=== PATIENT | female | born 2000 | race Hispanic/Latino ===

== ENCOUNTER 2024-11-08 12:42 | Emergency (ER) | payer SELFPAY ==
[~2024-11-08] VITALS: Ht 149.9 cm; Wt 61.2 kg
--- NOTE | 2024-11-08 12:58 | EKG ---
[facility] Test Date: 2024-11-08 Test Time: 12:54:48 Pat Name: ELMIRA TAYLOR Department: ED Room: Gender: F [employer] Sales Supervisor: [facility] : 2000 Requested By: LOPEZ HERNANDEZ Order Number: [id number] Reading MD: Mine Coronel Measurements Intervals [place] Rate: 109 P: 62 WI: 128 QRS: 67 QRSD: 88 T: -27 QT: 311 QTc: 419 Interpretive Statements Sinus tachycardia Borderline T abnormalities, diffuse leads No previous ECG available for comparison Electronically Signed On 11-08-2024 14:32:30 CDT by Mine Coronel Please click the below link to view image of tracing.
[2024-11-08] MEDS: 0.9%NACL 1000ML 1,000 ML IV ONE (13:39)
[2024-11-08] MEDS: acetaMINOPHEN 500 MG TABLET PO ONE (13:39)
[2024-11-08] MEDS: FAMOTIDINE 20MG VIAL IV ONE (13:46)
[2024-11-08] MEDS: morPHINE 2 MG SYG IVP ONE (13:46)
[2024-11-08] MEDS: ondanSETRON 4MG INJ IVP ONE (13:46)
[2024-11-08 14:02] LABS: APPEARANCE,URINE CLEAR (CLEAR); BILIRUBIN,URINE NEGATIVE (NEGATIVE); GLUCOSE, URINE (UA) NEGATIVE (NEGATIVE); KETONES,URINE NEGATIVE (NEGATIVE); LEUKOCYTE ESTERASE ,URINE NEGATIVE Leu/uL (NEGATIVE); NITRATE,URINE NEGATIVE (NEGATIVE); OCCULT BLOOD,URINE NEGATIVE (NEGATIVE); PH,URINE 7.5 (5.0-8.0); PROTEIN,URINE NEGATIVE (NEGATIVE); RBC,URINE 0-1 /HPF (0-1); SQUAMOUS EPITHELIAL CELL,UR FEW /HPF (0-2); UROBILINOGEN,URINE 0.2 mg/dL (0.2-1.0); WBC,URINE 0-1 /HPF (0-1)
[2024-11-08 14:07] LABS: COLOR,URINE LIGHT-YELLOW (YELLOW)
[2024-11-08 14:11] LABS: HCG,QUALITATIVE URINE NEGATIVE (NEGATIVE)
[2024-11-08 14:15] LABS: SARS-CoV-2, RNA, NAAT NEGATIVE SARS CoV-2 (NEGATIVE)
[2024-11-08 14:19] LABS: INFLUENZA TYPE A Negative For Type A (NEGATIVE); INFLUENZA TYPE B Negative For Type B (NEGATIVE)
[2024-11-08 14:29] LABS: BASOPHILS # (AUTO) 0.03 K/uL (0.00-0.20); BASOPHILS % (AUTO) 0.3 % (0.0-5.0); HEMATOCRIT 40.2 % (36-48); IMMATURE GRANULOCYTE ABSOLUTE 0.04 K/uL (0-1); LYMPHOCYTES % (AUTO) 9.7 % (21.0-51.0); MEAN CORPUSCULAR HEMOGLOBIN 30.5 pg (27.0-33.0); MEAN CORPUSCULAR HGB CONC 33.3 g/dL (32.0-36.0); MEAN CORPUSCULAR VOLUME 91.6 fL (79-99); MONOCYTES % (AUTO) 9.3 % (3.0-13.0); NEUTROPHILS # (AUTO) 8.3 K/uL (1.8-7.7); NEUTROPHILS % (AUTO) 80.3 % (40.0-77.0); PLATELET COUNT (AUTO) 324 K/uL (130-400); RED BLOOD CELL COUNT(AUTO) 4.39 MIL/uL (4.00-5.50); RED CELL DISTRIBUTION WIDTH 11.8 % (11.0-15.5); WHITE BLOOD COUNT (AUTO) 10.3 K/uL (4.8-10.8)
[2024-11-08 14:40] LABS: INR 1.08 (0.85-1.15); PROTHROMBIN TIME 11.4 SEC (9.6-11.6)
[2024-11-08 14:41] LABS: PARTIAL THROMBOPLASTIN TIME 30.5 SEC (26.3-35.5)
[2024-11-08 14:55] LABS: BAND NEUTROPHILS % (MANUAL) 5 % (0-2); LYMPHOCYTES % (MANUAL) 9 % (22-44); MAN.DIFF COMMENT-IMPRESSION MANUAL DIFFERENTIAL; MONOCYTES % (MANUAL) 5 % (2-9); PLATELET MORPHOLOGY COMMENT ADEQUATE; SEGMENTED NEUTROPHILS % 81 % (40-70); TOTAL CELLS COUNTED 100; WBC MORPHOLOGY CONSISTENT W/DIFF
[2024-11-08 14:57] LABS: ALBUMIN 4.3 g/dL (3.5-5.0); BILIRUBIN,DIRECT 0.1 mg/dL (0.0-0.3); BILIRUBIN,TOTAL 0.4 mg/dL (0.2-1.0); CREATININE 0.7 mg/dL (0.5-1.0); POTASSIUM 3.2 mmol/L (3.5-5.1); TOTAL PROTEIN, SERUM 8.1 g/dL (6.0-8.3)
[2024-11-08] MEDS ORDERED: IOHEXOL-350 75 ML VIAL IV ONE (15:03)
--- NOTE | 2024-11-08 15:28 | HMCIMG ---
Exam Type: CHEST 1VW Clinical Information: Shortness of breath Comparison: None Findings: The lungs are clear of infiltrates. The heart is normal in size. The bony and soft tissue structures of the chest are unremarkable. Impression: Clear lungs.
--- NOTE | 2024-11-08 16:01 | HMCIMG ---
Exam Type: CT ABDOMEN/PELVIS W/CONTRAST Clinical Information: Abdominal pain Comparison: None Contrast: 100 cc's Isovue 370 IV, no complications or adverse reactions CT Dose Index (CTDI): 31.60 mGy Dose Length Product (DLP): 1740.80 total mGy-cm Findings: No evidence of nephro or ureterolithiasis is found. No hydronephrosis or ureteral dilatation is seen. The lung bases are clear. The stomach is unremarkable. It shows no wall thickening. No gross ulceration is seen. It is not overly distended. There are no surrounding inflammatory changes. No wall lesions are identified to suggest cancer. The spleen is unremarkable. It is not enlarged. The pancreas shows normal anatomy. It is not fatty replaced. It shows no lesions. The pancreatic duct is not dilated. The gallbladder is unremarkable. It shows no cholelithiasis. The gallbladder wall is normal in thickness. There is no pericholecystic fluid. The is no acute or chronic inflammation noted. The adrenal glands are unremarkable. There is no enlargement. No lesions are noted. The liver is unremarkable. It shows no focal masses. The appendix is unremarkable. It shows no evidence of inflammation. No appendicolith is seen. The small bowel is unremarkable. There is no evidence of dilatation to suggest obstruction. No evidence of adynamic ileus is seen. There is no small bowel wall thickening to suggest enteritis. The colon is unremarkable. The urinary bladder is unremarkable. There is no wall thickening to suggest tumor or inflammation. There are no intraluminal calculi. There are no diverticula. There is no evidence of chronic bladder outlet obstruction. There is no evidence of urinary bladder distention to suggest urinary retention. Simple cyst right ovary 2.4 cm. The bony and vascular structures are unremarkable for the patient's age. IMPRESSION: Simple cyst right ovary. This study was performed using dose reduction techniques to include automated exposure control and/or adjustment of the mA and/or kV according to patient size.
[2024-11-08] MEDS ORDERED: ONDA-243 PO (16:07)
[2024-11-08] MEDS ORDERED: FAMO10TA39 PO (16:07)
--- NOTE | 2024-11-08 16:07 | ERN ---
General Chief Complaint: Abdominal Pain Stated Complaint: STOMACH BEEN HURTING FOR 3 DAYS History of Present Illness Initial Comments 4-year-old female came in for abdominal pain started prior to arrival. Patient has a has no concerns. Allergies: Coded Allergies: No Known Drug Allergies (Unverified Allergy, Unknown, 11/08/24) Past Medical History Past Medical History: No Pertinent History Past Surgical History: None Female( History) LMP: Oct 13, 2024 : 0 Para: 0 Aborts: 0 ROS Dictation Abdominal pain Physical Exam Physical Exam Dictation Vital Signs reviewed General Appearance: Alert, oriented x 3, no acute distress, well developed, nourished. Head and Face: non-traumatic. Eyes: PERRL, pink conjunctivas, eyelid no trauma, anterior chamber with arcus senilis. Ears: Pinnas intact and no signs of trauma or erythema ear canals clear and no discharge TM no erythema Nose: No discharge, no bleeding. Oropharynx: Mouth normal, tongue pink, pharynx clear,no erythema, tonsils no exudates, no abscesses noted, mucous membrane moist Neck: Supple, non-tender, no thyromegaly, no masses, no JVD, no bruits Breast:Deferred Chest:No tenderness, no crepitus, no paradoxical movement, no retractions Lungs:Clear, well-ventilated, symmetric, no rales, no wheezing, no rhonchi, no stridor, good breath sounds bilaterally Heart: Regular rate, regular rhythm, no murmur, no gallops Vascular: no peripheral edema, Abdomen: Soft, positive bowel sounds, nondistended, no guarding, nontender, no rebound, no masses no hepatomegaly, no splenomegaly, no Martino's sign, no hernias. Rectal: Deferred Genital: Deferred Neurological: Normal speech, motor function intact, sensory function intact Musculoskeletal: Neck nontender, full range of motion, back nontender, full range of motion, Extremities: nontender, full range of motion Skin: Color pink, dry, no turgor, no rash, no lacerations, no abrasions, no contusions. Lymphatic: Deferred Results Laboratory and Microbiology Lab and Micro Result Laboratory Tests Test 11/08/24 13:02 11/08/24 13:32 11/08/24 14:16 Urine Color LIGHT-YELLOW (YELLOW) Urine Appearance CLEAR (CLEAR) Urine pH 7.5 (5.0-8.0) Urine Specific [place] 1.004 (1.001-1.031) Urine Protein NEGATIVE mg/dL (NEGATIVE) Urine Glucose (UA) NEGATIVE mg/dL (NEGATIVE) Urine Ketones NEGATIVE mg/dL (NEGATIVE) Urine Occult Blood NEGATIVE (NEGATIVE) Urine Nitrate NEGATIVE (NEGATIVE) Urine Bilirubin NEGATIVE mg/dL (NEGATIVE) Urine Urobilinogen 0.2 mg/dL (0.2-1.0) Urine Leukocyte Esterase NEGATIVE Wai/uL Urine RBC 0-1 /HPF (0-1) Urine WBC 0-1 /HPF (0-1) Urine Squamous Epithelial Cells FEW /HPF (0-2) Urine Bacteria None /HPF (None Seen) Urine HCG, Qualitative NEGATIVE (NEGATIVE) Influenza Type A Antigen Negative For Type A Influenza Type B Antigen Negative For Type B SARS-CoV-2, RNA, NAAT NEGATIVE SARS CoV-2 Troponin I High Sensitivity < 4 ng/L (4-50) L White Blood Count 10.3 K/uL (4.8-10.8) Red Blood Count 4.39 MIL/uL (4.00-5.50) Hemoglobin 13.4 g/dL (12.0-16.0) Hematocrit 40.2 % (36-48) Mean Corpuscular Volume 91.6 fL (79-99) Mean Corpuscular Hemoglobin 30.5 pg (27.0-33.0) Mean Corpuscular Hemoglobin Concent 33.3 g/dL (32.0-36.0) Red Cell Distribution Width 11.8 % (11.0-15.5) Platelet Count 324 K/uL (130-400) Mean Platelet Volume 9.1 fL (7.5-10.5) Immature Granulocyte % (Auto) 0.4 % (0-1) Neutrophils (%) (Auto) 80.3 % (40.0-77.0) H Lymphocytes (%) (Auto) 9.7 % (21.0-51.0) L Monocytes (%) (Auto) 9.3 % (3.0-13.0) Eosinophils (%) (Auto) 0.0 % (0.0-8.0) Basophils (%) (Auto) 0.3 % (0.0-5.0) Neutrophils # (Auto) 8.3 K/uL (1.8-7.7) H Lymphocytes # (Auto) 1.0 K/uL (1.0-4.8) Monocytes # (Auto) 1.0 K/uL (0.1-1.0) Eosinophils # (Auto) 0.00 K/uL (0.00-0.70) Basophils # (Auto) 0.03 K/uL (0.00-0.20) Absolute Immature Granulocyte (auto 0.04 K/uL (0-1) Segmented Neutrophils % 81 % (40-70) H Band Neutrophils % 5 % (0-2) H Lymphocytes % (Manual) 9 % (22-44) L Monocytes % (Manual) 5 % (2-9) Nucleated Red Blood Cells 0.0 % (0.0-0.19) Differential Comment MANUAL DIFFERENTIAL White Cell Morphology Comment CONSISTENT W/DIFF Platelet Morphology Comment ADEQUATE Red Blood Cell Morphology NORMAL Prothrombin Time 11.4 SEC (9.6-11.6) Prothromb Time International Ratio 1.08 (0.85-1.15) Activated Partial Thromboplast Time 30.5 SEC (26.3-35.5) Sodium Level 139 mmol/L (136-145) Potassium Level 3.2 mmol/L (3.5-5.1) L Chloride Level 102 mmol/L (101-111) Carbon Dioxide Level 29 mmol/L (21-32) Blood Urea Nitrogen 5 mg/dL (7-18) L Creatinine 0.7 mg/dL (0.5-1.0) Glomerular Filtration Rate Calc 125 mL/min (>90) Random Glucose 104 mg/dL (70-105) Lactic Acid Level 2.2 mmol/L (0.8-2.5) Total Calcium 9.1 mg/dL (8.5-10.1) Total Bilirubin 0.4 mg/dL (0.2-1.0) Direct Bilirubin 0.1 mg/dL (0.0-0.3) Aspartate Amino Transf (AST/SGOT) 28 U/L (10-37) Alanine Aminotransferase (ALT/SGPT) 24 U/L (12-78) Alkaline Phosphatase 104 U/L (50-136) Total Creatine Kinase 47 U/L (21-232) Total Protein 8.1 g/dL (6.0-8.3) Albumin 4.3 g/dL (3.5-5.0) Lipase 17 U/L (16-77) Procalcitonin < 0.05 ng/mL (0.05-0.5) L Human Chorionic Gonadotropin, Quant 0 mIU/mL (0-5) MDM MDM: Differential diagnosis: Rationale: Tests considered and ordered secondary to shared decision making include: Previous outside records reviewed: Old ER visits. Risk of complication and/or morbidity or mortality of patient management: None Medications-Per medication reconciliation Need for hospitalization: Patient does not meet criteria for hospitalization. Need for emergency major/minor surgery: No There are no social concerns with this patient. Prescription drug management Prescriptions will include symptomatic care Patient's prior external medical records from other ER visits were reviewed by me as indicated. Prior testing and results from previous visits were reviewed. Prior tests were taken into account with medical decision making and resource utilization, independent historian/historians were used to obtain complete medical history. I independently interpreted the test that were performed, results were reviewed by me and considered findings on radiology if ordered. Medical management and examination interpretation discussions were had by me with other qualified healthcare professionals as indicated for the patient's care. ED Course Orders Procedure Category Date Status Time Iv Insertion CPOE 11/08/24 Transmitted 12:49 Pulse Ox(Continuous) RT 11/08/24 Transmitted 12:49 Vital Signs Per CPOE 11/08/24 Transmitted Routine 12:49 12 Lead Ekg Tracing- EKG 11/08/24 Resulted Technical 12:49 Blood Cult ORLIN 11/08/24 In Process 12:49 Culture Urine ORLIN 11/08/24 In Process 12:49 Troponin I High LAB 11/08/24 Logged Sensitivity 12:49 12 Lead Ekg Tracing- EKG 11/08/24 Logged Technical 12:51 Covid Rna Naat LAB 11/08/24 Complete 12:51 Influenza Type A & B, LAB 11/08/24 Complete Rapid 12:51 ,Urine Test LAB 11/08/24 Complete 12:51 Procalcitonin LAB 11/08/24 Complete 12:51 Troponin I High LAB 11/08/24 Complete Sensitivity 12:51 Urinalysis LAB 11/08/24 Complete W/Microscopic 12:51 Chest 1vw RAD 11/08/24 Resulted 12:51 0.9%Nacl 1000ml (Ns PHA 11/08/24 In Process 1000ml) 13:00 Acetaminophen 500mg PHA 11/08/24 Complete Tab (Tylenol 500mg T 13:00 Famotidine 20mg Vial PHA 11/08/24 Complete (Pepcid 20mg Vial) 14:00 Morphine 2mg Syg PHA 11/08/24 Complete (Morphine 2mg Syg) 14:00 Ondansetron 4mg Inj PHA 11/08/24 Complete (Zofran 4mg Inj) 14:00 Cbc With Differential LAB 11/08/24 Complete 14:08 Prothrombin Time With LAB 11/08/24 Complete INR 14:08 Partial LAB 11/08/24 Complete Thromboplastin Time 14:08 Basic Metabolic Panel LAB 11/08/24 Complete 14:00 Creatine Kinase, Total LAB 11/08/24 Complete 14:00 Hcg,Quantitative LAB 11/08/24 Complete 14:00 Hepatic Function Panel LAB 11/08/24 Complete 14:00 Lactic Acid LAB 11/08/24 Complete 14:00 Lipase LAB 11/08/24 Complete 14:00 Ct Abdomen/Pelvis CT 11/08/24 Resulted W/Contrast 14:20 Manual Differential LAB 11/08/24 Complete 14:16 Iohexol (Omnipaque) PHA 11/08/24 Complete 15:03 Current Medications Medications (Trade) Dose Ordered Sig/Sara Route PRN Reason Start Time Stop Time Status Last Admin Dose Admin Acetaminophen (TYLenol 500MG TAB) 1,000 mg ONCE ONCE PO 11/08/24 13:00 11/08/24 13:01 DC 11/08/24 13:39 Famotidine (Pepcid 20mg Vial) 20 mg ONCE ONCE IV 11/08/24 14:00 11/08/24 14:01 DC 11/08/24 13:46 Iohexol (Omnipaque) 75 ml STK-MED ONCE IV 11/08/24 15:03 11/08/24 15:04 DC Morphine Sulfate (morPHINE 2MG SYG) 2 mg ONCE ONCE IVP 11/08/24 14:00 11/08/24 14:01 DC 11/08/24 13:46 Ondansetron HCl (zoFRAN 4MG INJ) 4 mg ONCE ONCE IVP 11/08/24 14:00 11/08/24 14:01 DC 11/08/24 13:46 Sodium Chloride 1,000 ml @ 125 mls/hr ONCE ONCE IV 11/08/24 13:00 11/08/24 20:59 11/08/24 13:39 Vital Signs Date Time Temp Pulse Resp B/P (MAP) Pulse Ox O2 Delivery O2 Flow Rate FiO2 11/08/24 13:39 100.9 11/08/24 12:52 100.2 118 16 156/81 100 Room Air 0 11/08/24 12:51 100.2 118 16 156/81 98 Room Air* 0 21 DX & DISP Disposition: Discharge Departure Impression: Primary Impression: Abdominal pain Additional Impression: Gastritis Condition: Stable Scripts Famotidine (Pepcid AC) 10 Mg Tablet 1 TAB PO DAILY for 5 Days, #5 TAB 0 Refills Prov: LOPEZ HERNANDEZ MD 11/08/24 Ondansetron (Ondansetron Odt) 4 Mg Tab.rapdis 4 MG PO BID for 2 Days, #4 TAB Prov: LOPEZ HERNANDEZ MD 11/08/24 Referrals: SELF,REFERRAL (PCP) LOPEZ HERNANDEZ MD November 08, 2024 16:07
[2024-11-08 16:29] VITALS: TEMP 100
--- NOTE | 2024-11-08 17:27 | NUR ---
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
[2024-11-08 17:29] VITALS: BP 103/65; PULSE 89; RESP 18; TEMP 98.9; O2SAT 98
== END 2024-11-08 17:27 | disposition home or self-care (01) ==
LOC: EDH 12:42
DX: K29.70 Gastritis, unspecified, without bleeding (principal); R10.9 Unspecified abdominal pain; R10.2 Pelvic and perineal pain; Z20.822 Contact with and (suspected) exposure to COVID-19
CPT/HCPCS: 99285; 74177; 96374; 96375; 71045; 87635; 96361; 82550; 80076; 84484; 80048; 84702; 83690; 85025; 85610; 85730; 87040 ×2; 87086; 87804 ×2; 83605; 81001; 81025; 36415; 93005; 84145; J3490; J2270; J7030; J2405; Q9967